=== PATIENT | female | born 1970 | race African-American/Black ===

== ENCOUNTER 2017-10-07 05:37 | Inpatient (IN) ==
[2017-10-03 11:22] LABS: Basophils % 0.7 % (0.0-0.8); Eosinophils # 0.1 10*3/uL (0.0-0.87); Eosinophils % 2.1 % (0.00-10.9); Hematocrit 38.7 VOL% (35.7-47.0); Hemoglobin 12.8 GM/DL (12.0-16.0); Immature Granulocytes % 0.2 %; Immature Granulocytes Absolute 0.01 #; Lymphocytes # 2.8 10*3/uL (1.4-4.0); Lymphocytes % 48.4 % (21.3-54.2); Mean Corpuscular HGB Conc 33.1 GM/DL (32-36); Mean Corpuscular Hemoglobin 31 PG (27-34); Mean Corpuscular Volume 93.5 FL (87-102); Mean Platelet Volume 9.5 FL (9.6-12.0); Monocytes # 0.4 10*3/uL (0.11-0.8); Monocytes % 7.1 % (1.7-12.7); Neutrophils # 2.4 10*3/uL (1.4-7.4); Neutrophils % 41.5 % (38.7-73.9); Platelet Count 311 T/CUMM (130-400); Red Blood Count 4.14 MC/CUMM (3.8-5.5); Red Cell Distribution Width 13.7 % (9.3-17.3); White Blood Count 5.8 T/CUMM (4-12)
[2017-10-03 11:33] LABS: Apearance,Urine Slightly Hazy (Clear); Bilirubin,Urine Negative (Negative); Blood, Urine Large mg/dL (Negative); Glucose,Urine (UA) Negative (Negative); Ketones,Urine Negative (Negative); Mucus,Urine Occasional /LPF (Occasional); Nitrite,Urine Negative (Negative); Protein,Urine Negative; RBC,Urine 1 /HPF (0-4); Squamous Epithelial Cell,Urine Occasional /HPF (0-10); Urine Color Yellow (Yellow); Urine Specific Gravity 1.014 (1.001-1.035); Urine Urobilinogen < 2.0 EU/DL (0.2-1.0); WBC,Urine 5 /HPF (0-6)
[2017-10-03 12:00] LABS: Albumin 3.7 G/DL (3.4-5.0); Calcium 8.9 MG/DL (8.5-10.1); Osmolality,Calculated 277.4 MOS/KG (273-304); Risk Ratio 2.81; Total Protein 8.1 G/DL (6.4-8.3); VLDL CHOLESTEROL 13.4 MG/DL
[2017-10-03 12:48] LABS: HIV Antigen/Antibody Result Nonreactive (Nonreactive)
[2017-10-07] MEDS ORDERED: AMPICILLIN/SULBACTAM 3,000 MG in SODIUM CHLORIDE 0.9% 100 ML IV ONE (06:00)
[2017-10-07] MEDS ORDERED: AMPICILLIN/SULBACTAM 3,000 MG VIAL ONE (06:46)
[2017-10-07] MEDS ORDERED: SCOPOLAMINE 1.5 MG PATCH TRANSDERM ONE (07:05)
[2017-10-07] MEDS: LACTATED RINGERS 1,000 ML IV SCH ×4 (07:10→17:59)
[2017-10-07] MEDS ORDERED: BENZOCAINE/MENTHOL LOZENGE 18/BOX PO PRN (08:56)
[2017-10-07] MEDS ORDERED: ACETAMINOPHEN 325 MG TABLET PO PRN (08:56)
[2017-10-07] MEDS ORDERED: BISACODYL 10 MG SUPP RECTAL PRN (08:56)
[2017-10-07] MEDS ORDERED: fentaNYL 100 MCG/2 ML VIAL ONE ×2 (09:23)
[2017-10-07] MEDS ORDERED: MIDAZOLAM 2 MG/2 ML VIAL ONE (09:23)
[2017-10-07] MEDS ORDERED: ONDANSETRON 4 MG/2 ML VIAL ONE ×2 (09:23→09:26)
[2017-10-07] MEDS ORDERED: DEXAMETHASONE 10 MG/1 ML VIAL ONE (09:23)
[2017-10-07] MEDS ORDERED: GLYCOPYRROLATE 0.4 MG/2 ML VIAL ONE (09:23)
[2017-10-07] MEDS ORDERED: KETOROLAC 30 MG/1 ML VIAL ONE (09:23)
[2017-10-07] MEDS ORDERED: SEVOFLURANE 1 UNIT/15 MINUTE INH ONE (09:23)
[2017-10-07] MEDS ORDERED: PROPOFOL 200 MG/20 ML VIAL IV ONE (09:23)
[2017-10-07] MEDS ORDERED: NEOSTIGMINE 10 MG/10 ML VIAL ONE (09:24)
[2017-10-07] MEDS ORDERED: ROCURONIUM 100 MG/10 ML VIAL IV ONE (09:24)
[2017-10-07] MEDS ORDERED: LACTATED RINGERS 1,000 ML IV ONE (09:24)
[2017-10-07] MEDS ORDERED: ONDANSETRON 4 MG/2 ML VIAL IV PRN (09:25)
[2017-10-07] MEDS ORDERED: MORPHINE 10 MG/1 ML VIAL ONE (09:27)
[2017-10-07] MEDS: MORPHINE 10 MG/1 ML VIAL IV PRN ×5 (09:30→09:50)
[2017-10-07 09:32] LABS: Apearance,Urine CLEAR (Clear); Bilirubin,Urine Negative (Negative); Blood, Urine Negative (Negative); Glucose,Urine (UA) Negative (Negative); Ketones,Urine Negative (Negative); Nitrite,Urine Negative (Negative); Protein,Urine Negative; Urine Color Colorless (Yellow); Urine Specific Gravity 1.006 (1.001-1.035); Urine Urobilinogen < 2.0 EU/DL (0.2-1.0); WBC,Urine <1 /HPF (0-6)
[2017-10-07] MEDS ORDERED: MORPHINE 10 MG/1 ML VIAL IV PRN (10:42)
[2017-10-07] MEDS: MEPERIDINE 50 MG/1 ML VIAL IV PRN ×3 (13:23→21:15)
[2017-10-07] MEDS: ceFAZolin 1,000 MG in SYRINGE 1 EACH IV SCH ×2 (15:33→23:39)
[2017-10-07] MEDS: KETOROLAC 30 MG/1 ML VIAL IV SCH ×2 (15:39→21:46)
[2017-10-07] MEDS: ONDANSETRON 4 MG/2 ML VIAL IV PRN (18:05)
[2017-10-07] MEDS ORDERED: PROMETHAZINE 25 MG/1 ML VIAL IM PRN (20:56)
[2017-10-07] MEDS: SIMETHICONE CHEW 80 MG TABLET PO PRN (21:15)
[2017-10-07 21:17] LABS: Basophils % 0.1 % (0.0-0.8); Hematocrit 37.5 VOL% (35.7-47.0); Immature Granulocytes % 0.5 %; Immature Granulocytes Absolute 0.08 #; Lymphocytes # 1.1 10*3/uL (1.4-4.0); Lymphocytes % 6.9 % (21.3-54.2); Mean Corpuscular Hemoglobin 30 PG (27-34); Mean Corpuscular Volume 94.9 FL (87-102); Mean Platelet Volume 9.4 FL (9.6-12.0); Monocytes # 0.6 10*3/uL (0.11-0.8); Neutrophils # 13.6 10*3/uL (1.4-7.4); Neutrophils % 88.5 % (38.7-73.9); Platelet Count 287 T/CUMM (130-400); Red Blood Count 3.95 MC/CUMM (3.8-5.5); Red Cell Distribution Width 13.2 % (9.3-17.3); White Blood Count 15.4 T/CUMM (4-12)
[2017-10-08] MEDS: ONDANSETRON 4 MG/2 ML VIAL IV PRN (01:20)
[2017-10-08] MEDS: MEPERIDINE 50 MG/1 ML VIAL IV PRN (01:25)
[2017-10-08] MEDS: LACTATED RINGERS 1,000 ML IV SCH (02:54)
[2017-10-08] MEDS: KETOROLAC 30 MG/1 ML VIAL IV SCH ×2 (03:02→11:24)
[2017-10-08] MEDS: SIMETHICONE CHEW 80 MG TABLET PO PRN ×2 (04:10→20:10)
[2017-10-08] MEDS: MAGNESIUM HYDROXIDE SUSP 30 ML UDCUP PO PRN ×2 (06:45→20:10)
[2017-10-08 07:26] LABS: Basophils % 0.1 % (0.0-0.8); Hematocrit 34.4 VOL% (35.7-47.0); Hemoglobin 11.5 GM/DL (12.0-16.0); Immature Granulocytes % 0.8 %; Immature Granulocytes Absolute 0.12 #; Lymphocytes % 13.6 % (21.3-54.2); Mean Corpuscular HGB Conc 33.4 GM/DL (32-36); Mean Corpuscular Hemoglobin 31 PG (27-34); Mean Corpuscular Volume 92.5 FL (87-102); Mean Platelet Volume 9.5 FL (9.6-12.0); Monocytes # 1.3 10*3/uL (0.11-0.8); Neutrophils # 11.1 10*3/uL (1.4-7.4); Neutrophils % 76.5 % (38.7-73.9); Platelet Count 271 T/CUMM (130-400); Red Blood Count 3.72 MC/CUMM (3.8-5.5); Red Cell Distribution Width 13.6 % (9.3-17.3); White Blood Count 14.5 T/CUMM (4-12)
[2017-10-08] MEDS ORDERED: METOCLOPRAMIDE 10 MG/2 ML VIAL IV SCH (08:00)
[2017-10-08] MEDS: DOCUSATE SODIUM 100 MG CAPSULE PO PRN ×2 (10:16→20:10)
[2017-10-08] MEDS: amLODIPine 5 MG TABLET PO SCH (11:23)
[2017-10-08] MEDS ORDERED: ALUMINUM/MAGNES/SIMETH MAX STR 30 ML UDCUP PO PRN (14:16)
[2017-10-08] MEDS: METOCLOPRAMIDE 10 MG TABLET PO SCH ×2 (16:19→23:51)
[2017-10-08] MEDS: IBUPROFEN 800 MG TABLET PO PRN (22:39)
[2017-10-09] MEDS: IBUPROFEN 800 MG TABLET PO PRN (06:27)
[2017-10-09 07:10] VITALS: BP 127/68
[2017-10-09] MEDS: amLODIPine 5 MG TABLET PO SCH (10:10)
[2017-10-09] MEDS: DOCUSATE SODIUM 100 MG CAPSULE PO PRN (10:10)
[2017-10-09] MEDS: KETOROLAC 30 MG/1 ML VIAL IV SCH (13:16)
== END 2017-10-09 13:00 | disposition home or self-care (01) | DRG 743 ==
LOC: N.SDSINP 05:37 → N.OB 09:02
PROVIDERS: ADMIT Obstetrics & Gynecology; ATTEND Obstetrics & Gynecology